=== PATIENT | female | born 1990 | race Hispanic/Latino ===

== ENCOUNTER 2019-01-15 22:10 | Emergency (ER) | payer BC, OTHER ==
[~2019-01-15 22:10] MED LIST: SERT100T12 PO
[2019-01-15 23:05] LABS: BASOPHILS % (AUTO) 0.6 % (0.0-5.0); EOSINOPHILS % (AUTO) 1.2 % (0.0-8.0); HEMATOCRIT 37.6 % (36-48); LYMPHOCYTES % (AUTO) 32.1 % (21.0-51.0); MEAN CORPUSCULAR HEMOGLOBIN 29.7 pg (27.0-33.0); MEAN CORPUSCULAR HGB CONC 33.1 g/dL (32.0-36.0); MEAN CORPUSCULAR VOLUME 89.5 fL (79-99); MONOCYTES % (AUTO) 9.4 % (3.0-13.0); NEUTROPHILS % (AUTO) 56.7 % (40.0-77.0); PLATELET COUNT (AUTO) 363 K/uL (130-400); RED BLOOD CELL COUNT(AUTO) 4.21 MIL/uL (4.00-5.50); RED CELL DISTRIBUTION WIDTH 12.9 % (11.0-15.5); WHITE BLOOD COUNT (AUTO) 8.6 K/uL (4.8-10.8)
[2019-01-15 23:08] LABS: APPEARANCE,URINE Turbid (CLEAR); BILIRUBIN,URINE Negative (NEGATIVE); COLOR,URINE Yellow (YELLOW); GLUCOSE, URINE (UA) Negative (NEGATIVE); KETONES,URINE Trace mg/dL (NEGATIVE); LEUKOCYTE ESTERASE ,URINE Small (NEGATIVE); NITRATE,URINE Negative (NEGATIVE); OCCULT BLOOD,URINE Trace (NEGATIVE); PROTEIN,URINE POS 1+ (NEGATIVE)
[2019-01-15 23:14] LABS: HCG,QUAL RESULT NEGATIVE (NEGATIVE)
[2019-01-15 23:16] LABS: CREATININE 0.9 mg/dL (0.5-1.5); POTASSIUM 3.8 mmol/L (3.5-5.1)
[2019-01-15 23:21] LABS: ALBUMIN 3.5 g/dL (3.5-5.0); BILIRUBIN,TOTAL 0.2 mg/dL (0.2-1.0); TOTAL PROTEIN, SERUM 7.8 g/dL (6.0-8.3)
[2019-01-15 23:26] LABS: BACTERIA,URINE Many /HPF (None Seen); MUCUS,URINE Moderate LPF (None Seen); SPERM,URINE Moderate /HPF (None Seen); SQUAMOUS EPITHELIAL CELL,UR Few /HPF (0-2)
[2019-01-15] MEDS ORDERED: CEFTRIAXONE SODIUM 1 GM ONE (23:42)
[2019-01-15] MEDS ORDERED: SODIUM CHLORIDE 0.9% 1000ML 1,000 ML IV ONE (23:42)
[2019-01-15] MEDS ORDERED: ONDANSETRON HCL 4 MG/2 ML VIAL ONE (23:42)
== END 2019-01-16 02:07 | disposition home or self-care (01) ==
LOC: EDH 22:10
DX: N39.0 Urinary tract infection, site not specified (principal); F41.9 Anxiety disorder, unspecified; Z98.51 Tubal ligation status; Z98.890 Other specified postprocedural states
CPT/HCPCS: 36415; 74176; 80053; 81001; 81025; 83690; 85025; 87088; 96374; 99284; J0696; J2405; J7030

== ENCOUNTER 2019-12-02 23:30 | Emergency (ER) | payer OTHER | END 2019-12-03 01:27 | disposition home or self-care (01) | LOC: EDH 23:30 | DX: R07.9 Chest pain, unspecified (principal); T44.905A Adverse effect of unspecified drugs primarily affecting the autonomic nervous system, initial encounter; F41.9 Anxiety disorder, unspecified; Z98.51 Tubal ligation status; Z72.0 Tobacco use; Y92.89 Other specified places as the place of occurrence of the external cause | CPT/HCPCS: 93005 ==